=== PATIENT | female | born 1970 | race African-American/Black ===

== ENCOUNTER 2017-07-17 23:05 | Inpatient (IN) | payer MEDICARE, MEDICAID, OTHER ==
[~2017-07-17] VITALS: Ht 167.6 cm; Wt 99.2 kg
[2017-07-17 23:26] VITALS: BP 139/88; PULSE 70; RESP 18; O2SAT 96
[2017-07-18] MEDS ORDERED: OXYC-395 PO (01:35)
[2017-07-18] MEDS ORDERED: XANA1TAB2 PO (01:35)
[2017-07-18 01:55] VITALS: BP 150/120; PULSE 96; RESP 19
[2017-07-18 02:57] LABS: AUTOMATED NEUTROPHIL # 5.1 TH/MM3 (1.8-7.7); BASOPHIL % 0.5 % (0.0-2.0); EOSINOPHIL # 0.1 TH/MM3 (0-0.4); EOSINOPHIL % 0.7 % (0.0-4.0); HEMATOCRIT 36.7 % (35.0-46.0); HEMO FLAGS DIFF FINAL; LYMPH % 23.6 % (9.0-44.0); LYMPHOCYTE # 1.8 TH/MM3 (1.0-4.8); MEAN CELL VOLUME 90.5 FL (80.0-100.0); MEAN CORPUSCULAR HEMOGLOBIN 30.2 PG (27.0-34.0); MEAN CORPUSCULAR HGB CONC 33.4 % (32.0-36.0); MONO % 8.3 % (0.0-8.0); NEUT % 66.9 % (16.0-70.0); PLATELET COUNT 203 TH/MM3 (150-450); RED BLOOD COUNT 4.06 MIL/MM3 (4.00-5.30); RED CELL DISTRIBUTION WIDTH 14.7 % (11.6-17.2); WHITE BLOOD COUNT 7.6 TH/MM3 (4.0-11.0)
[2017-07-18 03:18] LABS: ALT (GPT) 18 U/L (10-53); ANION GAP 7 MEQ/L (5-15); AST (GOT) 15 U/L (15-37); BICARBONATE 25.8 MEQ/L (21.0-32.0); BLOOD UREA NITROGEN 17 MG/DL (7-18); CHLORIDE 101 MEQ/L (98-107); GLOMERULAR FILTRATION RATE 49 ML/MIN (>89); POTASSIUM 4.1 MEQ/L (3.5-5.1); SODIUM (NA) 134 MEQ/L (136-145)
[2017-07-18 03:21] LABS: ALKALINE PHOSPHATASE 86 U/L (45-117); TOTAL BILIRUBIN ADULT 0.2 MG/DL (0.2-1.0)
[2017-07-18 04:29] LABS: ACETAMINOPHEN LESS THAN 2.0 MCG/ML (10.0-30.0); ALCOHOL LESS THAN 3 MG/DL (0-5)
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
[2017-07-18 06:32] VITALS: BP 146/85; PULSE 59; RESP 19; O2SAT 98
[2017-07-18] MEDS ORDERED: INSULIN ASPART 1,000 UNITS/10 ML VIAL SQ ONE (06:45)
[2017-07-18] MEDS ORDERED: MAGNESIUM HYDROXIDE SUSP 30 ML CUP PO PRN (10:45)
[2017-07-18] MEDS ORDERED: ALUMINUM/MAGNESIUM/SIMETH 30 ML CUP PO PRN (10:45)
[2017-07-18] MEDS ORDERED: LORazepam 2 MG/ML VIAL IM PRN (10:45)
[2017-07-18] MEDS ORDERED: LYRI50CA PO (10:46)
[2017-07-18] MEDS ORDERED: TRAZ100T6 PO (10:46)
[2017-07-18] MEDS ORDERED: LINA290C PO (10:47)
[2017-07-18] MEDS ORDERED: OXYC-433 PO (10:47)
[2017-07-18] MEDS ORDERED: NOVOINJ3 SQ ×2 (10:48→10:49)
[2017-07-18] MEDS ORDERED: TIZA4CAP3 PO (10:51)
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
[2017-07-18] MEDS ORDERED: oxyCODONE/ACETAMINOPHEN 10 MG/325 MG TAB PO PRN (11:15)
[2017-07-18 11:40] VITALS: BP_SYST 146; BP_SYST 68; BP_DIAS 16; BP_DIAS 84; TEMP 98; O2SAT 99
[2017-07-18] MEDS ORDERED: INSULIN ASPART 1,000 UNITS/10 ML VIAL SQ SCH ×2 (13:00→16:00)
[2017-07-18] MEDS: PREGABALIN 25 MG CAP PO SCH ×2 (13:00→18:50)
[2017-07-18] MEDS ORDERED: LINZESS 290 MCG PO SCH (13:00)
[2017-07-18 15:51] VITALS: BP 144/93; PULSE 75; RESP 18; TEMP 97.3
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
[2017-07-18] MEDS ORDERED: GLUCAGON 1 MG/ML VIAL OTHER PRN (16:00)
[2017-07-18] MEDS ORDERED: DEXTROSE 50% IN WATER 50 ML VIAL(D50) IV PUSH PRN (16:00)
[2017-07-18] MEDS: INSULIN ASPART 1,000 UNITS/10 ML VIAL SQ SCH (17:00)
[2017-07-18] MEDS ORDERED: INSULIN ASPART SUPPLEMENTAL SCALE SQ SCH (17:00)
[2017-07-18] MEDS ORDERED: PILL SPLITTER OTHER PRN (17:30)
[2017-07-18] MEDS: amLODIPine BESYLATE 5 MG TAB PO SCH (18:50)
[2017-07-18] MEDS: PARoxetine HCL 20 MG TAB PO SCH (20:00)
[2017-07-18] MEDS: INSULIN ASPART SUPPLEMENTAL SCALE SQ SCH (21:00)
[2017-07-18] MEDS: INSULIN DETEMIR 100 UNITS/ML VIAL SQ SCH (21:00)
[2017-07-18] MEDS: CARVEDILOL 12.5 MG TAB PO SCH (22:06)
[2017-07-18] MEDS: traZODone HCL 100 MG TAB PO SCH (22:08)
[2017-07-18] MEDS: LORazepam 1 MG TAB PO PRN (22:11)
[2017-07-19] MEDS ORDERED: LEVOTHYROXINE SODIUM 112 MCG TAB PO SCH (06:00)
[2017-07-19] MEDS ORDERED: LEVOTHYROXINE SODIUM 25 MCG TAB PO SCH (06:00)
[2017-07-19 06:11] VITALS: BP 129/72; PULSE 71; RESP 18; TEMP 97.9; O2SAT 96
[2017-07-19] MEDS: INSULIN ASPART 1,000 UNITS/10 ML VIAL SQ SCH ×3 (08:00→16:34)
[2017-07-19] MEDS: INSULIN ASPART SUPPLEMENTAL SCALE SQ SCH ×4 (08:00→21:12)
[2017-07-19] MEDS: INSULIN DETEMIR 100 UNITS/ML VIAL SQ SCH ×2 (09:00→21:12)
[2017-07-19] MEDS: PANTOPRAZOLE SOD 20 MG DELAYED RELEASE TAB PO SCH (09:31)
[2017-07-19] MEDS: CARVEDILOL 12.5 MG TAB PO SCH ×2 (09:31→21:12)
[2017-07-19] MEDS: amLODIPine BESYLATE 5 MG TAB PO SCH (09:31)
[2017-07-19] MEDS: PREGABALIN 25 MG CAP PO SCH ×3 (09:31→18:26)
[2017-07-19] MEDS: ATORVASTATIN 20 MG TAB PO SCH (09:32)
[2017-07-19] MEDS: PARoxetine HCL 20 MG TAB PO SCH (09:32)
[2017-07-19 10:13] LABS: AUTOMATED NEUTROPHIL # 4.3 TH/MM3 (1.8-7.7); BASOPHIL # 0.1 TH/MM3 (0-0.2); BASOPHIL % 1.7 % (0.0-2.0); EOSINOPHIL # 0.1 TH/MM3 (0-0.4); EOSINOPHIL % 1.3 % (0.0-4.0); HEMO FLAGS DIFF FINAL; LYMPH % 25.6 % (9.0-44.0); LYMPHOCYTE # 1.7 TH/MM3 (1.0-4.8); MEAN CORPUSCULAR HEMOGLOBIN 30.1 PG (27.0-34.0); MEAN CORPUSCULAR HGB CONC 33.1 % (32.0-36.0); MONO % 6.3 % (0.0-8.0); NEUT % 65.1 % (16.0-70.0); PLATELET COUNT 208 TH/MM3 (150-450); RED BLOOD COUNT 3.96 MIL/MM3 (4.00-5.30); RED CELL DISTRIBUTION WIDTH 14.6 % (11.6-17.2); WHITE BLOOD COUNT 6.6 TH/MM3 (4.0-11.0)
[2017-07-19 10:35] LABS: ANION GAP 12 MEQ/L (5-15); AST (GOT) 13 U/L (15-37); BICARBONATE 22.4 MEQ/L (21.0-32.0); BLOOD UREA NITROGEN 16 MG/DL (7-18); CHLORIDE 100 MEQ/L (98-107); GLOMERULAR FILTRATION RATE 50 ML/MIN (>89); POTASSIUM 3.8 MEQ/L (3.5-5.1); SODIUM (NA) 134 MEQ/L (136-145)
[2017-07-19 10:36] LABS: ALT (GPT) 19 U/L (10-53)
[2017-07-19 10:53] LABS: HEMOGLOBIN A1a 1.2 %; HEMOGLOBIN A1b 3.2 %; HEMOGLOBIN Ao 76.1 %; HEMOGLOBIN LA1C 3.2 %; HEMOGLOBIN P3 4.9 %
[2017-07-19 11:02] LABS: ALKALINE PHOSPHATASE 81 U/L (45-117); HDL CHOLESTEROL 66.6 MG/DL (40.0-60.0); LDL CHOLESTEROL 154 MG/DL (0-99); TOTAL BILIRUBIN ADULT 0.2 MG/DL (0.2-1.0)
--- NOTE | 2017-07-19 11:36 | EKG ---
Date Performed: 07/19/2017 Time Performed: 10:27:40 PTAGE: 47 years EKG: Sinus rhythm NONSPECIFIC INTRAVENTRICULAR CONDUCTION DELAY BORDERLINE ECG NO PREVIOUS TRACING DOCTOR: Prasad Bolivar Interpretating Date/Time 07/19/2017 11:35:03
--- NOTE | 2017-07-19 14:21 | HHI.PR ---
Subjective Remarks Final diabetes mellitus, hypothyroidism and hyperlipidemia. Patient has no complaints. She wears compliance with medications. Patient updated with lab results with A1c of 11.1, LDL 154 and TSH of 10. Discussed with RN Objective Vitals Vital Signs Date Time Temp Pulse Resp B/P (MAP) Pulse Ox O2 Delivery O2 Flow Rate FiO2 07/19/17 06:11 97.9 71 18 129/72 (91) 96 07/18/17 15:51 97.3 75 18 144/93 (110) Result Diagram: 07/19/17 0948 07/19/17 0948 Objective Remarks GENERAL: Well-developed, well-nourished in no distress SKIN: Warm and dry. CARDIOVASCULAR: Regular rate and rhythm. RESPIRATORY: No accessory muscle use. Clear to auscultation. Breath sounds equal bilaterally. GASTROINTESTINAL: Abdomen soft, non-tender, nondistended. MUSCULOSKELETAL: Extremities without clubbing, cyanosis, or edema. No obvious deformities. NEUROLOGICAL: Awake and alert. No obvious cranial nerve deficits. Motor grossly within normal limits. Five out of 5 muscle strength in the arms and legs. Normal speech. A/P Problem List: (1) HTN (hypertension) ICD Code: I10 - Essential (primary) hypertension Status: Chronic (2) Hypothyroidism ICD Code: E03.9 - Hypothyroidism, unspecified Status: Chronic (3) HLD (hyperlipidemia) ICD Code: E78.5 - Hyperlipidemia, unspecified Status: Chronic (4) Adjustment disorder with depressed mood ICD Code: F43.21 - Adjustment disorder with depressed mood Status: Chronic (5) DM type 2 (diabetes mellitus, type 2) ICD Code: E11.9 - Type 2 diabetes mellitus without complications Status: Chronic Assessment and Plan Patient is a 47-year-old female who came into the ED as a Bryant act by the police department. She is now admitted to psychiatry unit for further evaluation. Consulted for medical management. Acute kidney injury, possible underlying CKD. Slightly improved on today's labs. Obtain urinalysis - Patient denies diagnoses for any kidney disease - Possible diabetic nephropathy -Continue to monitor DM 2, insulin-dependent, uncontrolled A1c 11.1 - Patient states she is non-compliant with her insulin doses. She knows the novolog will immediately drop her BG that she stagers the dose during meals. She takes Lantus 40units at night but sometimes she forgets. -Continue NovoLog 10 units prandial, Levemir 20 units twice a day and adjust accordingly. Diabetic education - Monitor Accu-Cheks. Monitor for hypoglycemia HTN -Improving continue amlodipine 2.5mg daily and carvedilol 12.5mg BID. Hold hydrochlorothiazide secondary to RAJEEV - Monitor BP Trend HLD - Heart healthy diet continue atorvastatin 20 mg daily Chronic pain, muscle spasms - Continue tizanidine from home, Tylenol for pain - Follow up with pain management outpatient Hypothyroidism. TSH subtherapeutic. Increase levothyroxine 150 g daily and repeat TSH in 6 weeks DVT prophylaxis, patient is ambulatory low risk Problem Qualifiers (1) DM type 2 (diabetes mellitus, type 2): Qualified Codes: E11.65 - Type 2 diabetes mellitus with hyperglycemia; Z79.4 - termite renewal inspector (current) use of insulin Alfred Guevara MD Jul 19, 2017 14:21
[2017-07-19] MEDS: CHOLECALCIFEROL (VIT D3) 1000 UNIT TAB PO SCH (16:30)
--- NOTE | 2017-07-19 17:30 | HHI.PYPN ---
Subjective Remarks Patient was seen and case discussed with nursing. Patient is pleasant and cooperative with exam. She does minimizes her reasons for admission and her mental health history. His compliant with her medications and tolerating it well. Denies depressed mood before admission. Complaining of "anxiety." Denies suicidal or homicidal thoughts ideation intent or plan. Continues to be followed by the medical team Objective Alert: Yes [place]: Person, Place, Date Mood: Calm Affect: Blunted Memory Intact: Comment (grossly intact) Hallucinations: Auditory (denies) Delusions: No Delusion Type: Other (none elicited) Suicidal: Ideation (denies) Homicidal: Ideation (denies) Insight/Judgment Poor Labs Test 07/19/17 09:48 White Blood Count 6.6 TH/MM3 Red Blood Count 3.96 MIL/MM3 Hemoglobin 11.9 GM/DL Hematocrit 36.0 % Mean Corpuscular Volume 91.0 FL Mean Corpuscular Hemoglobin 30.1 PG Mean Corpuscular Hemoglobin Concent 33.1 % Red Cell Distribution Width 14.6 % Platelet Count 208 TH/MM3 Mean Platelet Volume 9.7 FL Neutrophils (%) (Auto) 65.1 % Lymphocytes (%) (Auto) 25.6 % Monocytes (%) (Auto) 6.3 % Eosinophils (%) (Auto) 1.3 % Basophils (%) (Auto) 1.7 % Neutrophils # (Auto) 4.3 TH/MM3 Lymphocytes # (Auto) 1.7 TH/MM3 Monocytes # (Auto) 0.4 TH/MM3 Eosinophils # (Auto) 0.1 TH/MM3 Basophils # (Auto) 0.1 TH/MM3 CBC Comment DIFF FINAL Differential Comment Blood Urea Nitrogen 16 MG/DL Creatinine 1.37 MG/DL Random Glucose 291 MG/DL Total Protein 7.7 GM/DL Albumin 3.6 GM/DL Calcium Level 9.7 MG/DL Alkaline Phosphatase 81 U/L Aspartate Amino Transf (AST/SGOT) 13 U/L Alanine Aminotransferase (ALT/SGPT) 19 U/L Total Bilirubin 0.2 MG/DL Sodium Level 134 MEQ/L Potassium Level 3.8 MEQ/L Chloride Level 100 MEQ/L Carbon Dioxide Level 22.4 MEQ/L Anion Gap 12 MEQ/L Estimat Glomerular Filtration Rate 50 ML/MIN Hemoglobin A1c 11.1 % Triglycerides Level 184 MG/DL Cholesterol Level 257 MG/DL LDL Cholesterol 154 MG/DL HDL Cholesterol 66.6 MG/DL Cholesterol/HDL Ratio 3.85 RATIO Vitamin B12 Level 628 PG/ML 25-Hydroxy Vitamin D Total 16.8 ng/ML Thyroid Stimulating Hormone 3rd Gen 10.400 uIU/ML Vitals/IOs Vital Signs Date Time Temp Pulse Resp B/P (MAP) Pulse Ox O2 Delivery O2 Flow Rate FiO2 07/19/17 06:11 97.9 71 18 129/72 (91) 96 07/18/17 11:40 Room Air Assessment & Plan Problem List: (1) Adjustment disorder with depressed mood ICD Codes: F43.21 - Adjustment disorder with depressed mood Status: Chronic Assessment & Plan Continue current treatment plan Justification for Cont. Inpt. Patient would decompensate in a less restrictive setting Jaime Fernández DO Jul 19, 2017 17:29
[2017-07-19] MEDS: traZODone HCL 100 MG TAB PO SCH (21:12)
[2017-07-19] MEDS: LORazepam 1 MG TAB PO PRN (21:19)
[2017-07-20 04:54] VITALS: BP 117/59; PULSE 70; RESP 16; TEMP 98.3; O2SAT 98
[2017-07-20] MEDS: LEVOTHYROXINE SODIUM 150 MCG TAB PO SCH (05:50)
[2017-07-20 06:35] LABS: BACTERIA, URINE OCC /hpf; BLOOD, URINE NEG (NEG); COMMENT (UR) CULT NOT INDICATED; CULTURE IF INDICATED CULT NOT INDICATED; GLUCOSE,URINE 300 mg/dL (NEG); KETONE, URINE NEG (NEG); MUCUS URINE FEW /lpf (OCC); NITRITE,URINE NEG (NEG); SQUAMOUS EPITHELIAL CELL URINE 1 /hpf (0-5); URINE COLOR LIGHT-YELLOW (YELLW/STRAW)
[2017-07-20] MEDS: INSULIN ASPART SUPPLEMENTAL SCALE SQ SCH ×4 (07:55→21:26)
[2017-07-20] MEDS: INSULIN ASPART 1,000 UNITS/10 ML VIAL SQ SCH ×3 (07:55→17:00)
[2017-07-20] MEDS: ATORVASTATIN 20 MG TAB PO SCH (09:00)
[2017-07-20] MEDS: INSULIN DETEMIR 100 UNITS/ML VIAL SQ SCH ×2 (09:00→21:25)
[2017-07-20] MEDS: CHOLECALCIFEROL (VIT D3) 1000 UNIT TAB PO SCH (10:05)
[2017-07-20] MEDS: PARoxetine HCL 20 MG TAB PO SCH (10:06)
[2017-07-20] MEDS: PANTOPRAZOLE SOD 20 MG DELAYED RELEASE TAB PO SCH (10:06)
[2017-07-20] MEDS: PREGABALIN 25 MG CAP PO SCH ×3 (10:06→18:38)
[2017-07-20] MEDS: amLODIPine BESYLATE 5 MG TAB PO SCH (10:06)
[2017-07-20] MEDS: CARVEDILOL 12.5 MG TAB PO SCH ×2 (10:07→21:25)
--- NOTE | 2017-07-20 12:14 | HHI.PYPN ---
Subjective Remarks Patient was seen and case discussed with nursing. Patient is pleasant and cooperative with exam. Bright and cheerful during the interview. Does not seem interested in talking to her son. Affect is euthymic. Denies suicidal or homicidal ideation intent or plan. Eating and sleeping well per nursing Objective Alert: Yes [place]: Person, Place, Date Mood: Calm Affect: Euthymic Memory Intact: Comment (grossly intact) Hallucinations: Auditory (denies) Delusions: No Delusion Type: Other (none elicited) Suicidal: Ideation (denies) Homicidal: Ideation (denies) Insight/Judgment Poor Labs Test 07/20/17 06:00 Urine Color LIGHT-YELLOW Urine Turbidity HAZY Urine pH 5.0 Urine Specific [place] 1.010 Urine Protein NEG mg/dL Urine Glucose (UA) 300 mg/dL Urine Ketones NEG mg/dL Urine Occult Blood NEG Urine Nitrite NEG Urine Bilirubin NEG Urine Urobilinogen LESS THAN 2.0 MG/DL Urine Leukocyte Esterase LARGE Urine RBC 1 /hpf Urine WBC 5 /hpf Urine Squamous Epithelial Cells 1 /hpf Urine Amorphous Sediment RARE Urine Bacteria OCC /hpf Urine Mucus FEW /lpf Microscopic Urinalysis Comment CULT NOT INDICATED Vitals/IOs Vital Signs Date Time Temp Pulse Resp B/P (MAP) Pulse Ox O2 Delivery O2 Flow Rate FiO2 07/20/17 04:54 98.3 70 16 117/59 (78) 98 07/18/17 11:40 Room Air Assessment & Plan Problem List: (1) Adjustment disorder with depressed mood ICD Codes: F43.21 - Adjustment disorder with depressed mood Status: Chronic Assessment & Plan Continue current treatment plan Justification for Cont. Inpt. Patient will decompensate in a less restrictive setting Jaime Fernández DO Jul 20, 2017 12:13
--- NOTE | 2017-07-20 13:46 | HHI.PR ---
Subjective Remarks Follow-up diabetes mellitus. Patient complains of chronic intermittent numbness of bilateral fingers patient on Lyrica. Discussed with RN Objective Vitals Vital Signs Date Time Temp Pulse Resp B/P (MAP) Pulse Ox O2 Delivery O2 Flow Rate FiO2 07/20/17 04:54 98.3 70 16 117/59 78 98 Result Diagram: 07/19/1748 07/19/17 0948 Objective Remarks GENERAL: Well-developed, well-nourished in no distress SKIN: Warm and dry. CARDIOVASCULAR: Regular rate and rhythm. RESPIRATORY: No accessory muscle use. Clear to auscultation. Breath sounds equal bilaterally. GASTROINTESTINAL: Abdomen soft, non-tender, nondistended. MUSCULOSKELETAL: Extremities without clubbing, cyanosis, or edema. No obvious deformities. NEUROLOGICAL: Awake and alert. No obvious cranial nerve deficits. Motor grossly within normal limits. Five out of 5 muscle strength in the arms and legs. Normal speech. A/P Problem List: (1) HTN (hypertension) ICD Code: I10 - Essential (primary) hypertension Status: Chronic (2) Hypothyroidism ICD Code: E03.9 - Hypothyroidism, unspecified Status: Chronic (3) HLD (hyperlipidemia) ICD Code: E78.5 - Hyperlipidemia, unspecified Status: Chronic (4) Adjustment disorder with depressed mood ICD Code: F43.21 - Adjustment disorder with depressed mood Status: Chronic (5) DM type 2 (diabetes mellitus, type 2) ICD Code: E11.9 - Type 2 diabetes mellitus without complications Status: Chronic Assessment and Plan Patient is a 47-year-old female who came into the ED as a [place] act by the police department. She is now admitted to psychiatry unit for further evaluation. Consulted for medical management. Acute kidney injury, possible underlying CKD. Slightly improved. - Patient denies diagnoses for any kidney disease - Possible diabetic nephropathy - Continue to monitor . Avoid nephrotoxins DM 2, insulin-dependent, uncontrolled A1c 11.1 - Patient states she is non-compliant with her insulin doses. She knows the novolog will immediately drop her BG that she staggers the dose during meals. She takes Lantus 40units at night but sometimes she forgets. - Continue NovoLog 10 units prandial, Levemir 23 units twice a day and adjust accordingly. Diabetic education - Monitor Accu-Cheks. Monitor for hypoglycemia Diabetic neuropathy. Continue Lyrica HTN -Improving continue amlodipine 2.5mg daily and carvedilol 12.5mg BID. Hold hydrochlorothiazide secondary to RAJEEV - Monitor BP Trend HLD - Heart healthy diet continue atorvastatin 20 mg daily Chronic pain, muscle spasms - Continue tizanidine from home, Tylenol for pain - Follow up with pain management outpatient Hypothyroidism. TSH subtherapeutic. Increase levothyroxine 150 g daily 07/19 and repeat TSH in 6 weeks DVT prophylaxis, patient is ambulatory low risk Problem Qualifiers (1) DM type 2 (diabetes mellitus, type 2): Qualified Codes: E11.65 - Type 2 diabetes mellitus with hyperglycemia; Z79.4 - penitentiary (current) use of insulin Alfred Guevara MD Jul 20, 2017 13:46
[2017-07-20 18:09] VITALS: BP 122/76; PULSE 72; RESP 18; TEMP 97.5; O2SAT 98
[2017-07-20] MEDS: traZODone HCL 100 MG TAB PO SCH (21:25)
[2017-07-20] MEDS: ACETAMINOPHEN 325 MG TAB PO PRN (23:13)
[2017-07-21] MEDS: LORazepam 1 MG TAB PO PRN (00:17)
[2017-07-21] MEDS: LEVOTHYROXINE SODIUM 150 MCG TAB PO SCH (06:18)
[2017-07-21] MEDS: ACETAMINOPHEN 325 MG TAB PO PRN (06:46)
[2017-07-21 06:54] VITALS: BP 145/83; PULSE 68; RESP 16; TEMP 98; O2SAT 96
[2017-07-21] MEDS: INSULIN ASPART 1,000 UNITS/10 ML VIAL SQ SCH ×3 (07:38→16:11)
[2017-07-21] MEDS: INSULIN ASPART SUPPLEMENTAL SCALE SQ SCH ×4 (07:40→20:59)
[2017-07-21] MEDS: CHOLECALCIFEROL (VIT D3) 1000 UNIT TAB PO SCH (08:34)
[2017-07-21] MEDS: CARVEDILOL 12.5 MG TAB PO SCH ×2 (08:35→20:51)
[2017-07-21] MEDS: PREGABALIN 25 MG CAP PO SCH ×3 (08:35→17:14)
[2017-07-21] MEDS: PANTOPRAZOLE SOD 20 MG DELAYED RELEASE TAB PO SCH (08:35)
[2017-07-21] MEDS: ATORVASTATIN 20 MG TAB PO SCH (08:35)
[2017-07-21] MEDS: amLODIPine BESYLATE 5 MG TAB PO SCH (08:35)
[2017-07-21] MEDS: PARoxetine HCL 20 MG TAB PO SCH (08:35)
[2017-07-21] MEDS: INSULIN DETEMIR 100 UNITS/ML VIAL SQ SCH ×2 (08:36→20:59)
[2017-07-21] MEDS ORDERED: LYRI50CA PO (16:37)
[2017-07-21] MEDS ORDERED: PANT20 PO (16:37)
[2017-07-21] MEDS ORDERED: CARV12.5 PO (16:37)
[2017-07-21] MEDS ORDERED: LEVEMIR SQ (16:37)
[2017-07-21] MEDS ORDERED: VITA1000 PO (16:37)
[2017-07-21] MEDS ORDERED: LEVO.15 PO (16:37)
[2017-07-21] MEDS ORDERED: ATOR20TA15 PO (16:37)
[2017-07-21] MEDS ORDERED: AMLO5 PO (16:37)
[2017-07-21] MEDS ORDERED: TRAZ100T6 PO (16:37)
[2017-07-21] MEDS ORDERED: TIZA4 PO (16:37)
[2017-07-21] MEDS ORDERED: NOVOLOGP2 SQ (16:37)
[2017-07-21] MEDS ORDERED: PARO20TA2 PO (16:37)
--- NOTE | 2017-07-21 16:43 | HHI.DS ---
Psychiatry Discharge Summary Inpatient Psychiatric care?: Yes Advance Directive: No Reason Not Provided: Due to Patient Condition Mental Health AdvanceDirective: No Health Care Proxy: No Admission Admission Date Jul 18, 2017 at 10:41 Admission Diagnosis: (1) Adjustment disorder with depressed mood ICD Code: F43.21 - Adjustment disorder with depressed mood Brief History 47-year-old female presents under a Bryant act for both suicidal and homicidal ideation patient apparently got into an argument with her 17-year-old son. Patient states her son has been doing drugs and being disrespectful and rebellious with her. Patient is quite worried about his drug use but she is also worried that she will get angry enough to harm him and then harm or kill herself. According to the Bryant act, the patient was suicidal in her residence last night, believing her son was on narcotics. She described herself as extremely tired and needing help for her mental condition. She feels like she is a failure. She was noted to be very upset. At this time the patient describes multiple symptoms of depression, including depressed mood, anhedonia, suicidal ideation, social withdrawal, tearfulness, feeling hopeless and helpless, decreased self-esteem, insomnia, appetite change (eating more and noncompliant with her diabetes medicine) irritability and tearfulness. She denies the use of alcohol or drugs. Tobacco Use In Past 30 Days: No Tobacco Past 30 Days Alcohol Use: Never Hospital Course Patient hospital course was uneventful, she has been compliant with her medications. Feels these few days is really help to get some perspective into her relationship with her son. She now denies suicidality homicidality voices or visions. Has had a contact with her family she is willing to go home with them today. And able contracted to no harm. Thus patient be discharged today to her daughter the follow-up mental health services in the community and her area Results Blood Pressure 145 / 83 Vital Signs Date Time Temp Pulse Resp B/P (MAP) Pulse Ox O2 Delivery O2 Flow Rate FiO2 07/21/17 06:54 98.0 68 16 145/83 (103) 96 07/18/17 11:40 Room Air Laboratory Tests Test 07/19/17 09:48 07/20/17 06:00 Red Blood Count 3.96 MIL/MM3 (4.00-5.30) Creatinine 1.37 MG/DL (0.50-1.00) Random Glucose 291 MG/DL (74-106) Aspartate Amino Transf (AST/SGOT) 13 U/L (15-37) Sodium Level 134 MEQ/L (136-145) Estimat Glomerular Filtration Rate 50 ML/MIN (>89) Hemoglobin A1c 11.1 % (4.3-6.0) Triglycerides Level 184 MG/DL (42-150) Cholesterol Level 257 MG/DL (120-200) LDL Cholesterol 154 MG/DL (0-99) HDL Cholesterol 66.6 MG/DL (40.0-60.0) 25-Hydroxy Vitamin D Total 16.8 ng/ML (30-100) Thyroid Stimulating Hormone 3rd Gen 10.400 uIU/ML (0.358-3.740) Urine Turbidity HAZY (CLEAR) Urine Glucose (UA) 300 mg/dL (NEG) Urine Leukocyte Esterase LARGE (NEG) Urine Bacteria OCC /hpf (NONE) Urine Mucus FEW /lpf (OCC) Laboratory Results Test 07/19/17 09:48 Cholesterol Level 257 MG/DL (120-200) HDL Cholesterol 66.6 MG/DL (40.0-60.0) Hemoglobin A1c 11.1 % (4.3-6.0) LDL Cholesterol 154 MG/DL (0-99) Triglycerides Level 184 MG/DL (42-150) Summary of Procedures None done Pending results at discharge: No Medications # of Antipsychotic meds at D/C: 0 Approp Antipsych med options 1 - Minimum of three failed multiple trials of monotherapy. 2 - Documented plan to taper to monotherapy due to previous use of multiple meds OR cross-taper in progress at D/C. 3 - Documentation of augmentation of Clozapine. 4 - Justification other than those listed in allowable values 1-3, document here : Discharge Discharge Date: Jul 21, 2017 Discharge Diagnosis: (1) Adjustment disorder with depressed mood Diagnosis: Principal ICD Code: F43.21 - Adjustment disorder with depressed mood Status: Chronic Mental Status Exam at Disch Alert oriented Afro[place] female calm cooperative with me. She is normoactive. Her mood is euthymic to mildly dysphoric with good range intensity of her affect. Speech rate and rhythm are within normal limits though no formal thought disorders. No auditory or visual hallucinations. No delusions. Insight and judgment is fair. Cognition grossly intact Pt Condition on Discharge: Stable Discharge Disposition: Discharge Home Discharge Instructions Diet Instructions: As Tolerated, No Restrictions Activities you can perform: Regular-No Restrictions Scheduled Appointment: [facility] Appointment Date: Jul 22, 2017 Appointment Time: 7:30 a.m. Discharge Time > 30 minutes Discharge/Advance Care Plan Health Problems: (1) Adjustment disorder with depressed mood Goals to promote your health * To prevent worsening of your condition and complications * To maintain your health at the optimal level Directions to meet your goals Take your medications as prescribed Follow your dietary instruction Follow activity as directed Keep your appointments as scheduled Take your immunizations and boosters as scheduled If your symptoms worsen call your PCP, if no PCP go to Urgent Care Center or Emergency Room For 12/05 questions related to your inpatient stay or results of tests pending at discharge, please contact Dr. Ashu Matias at Smoking is Dangerous to Your Health. Avoid second hand smoking Ashu Matias MD Jul 21, 2017 16:43
--- NOTE | 2017-07-21 17:09 | HHI.PR ---
Subjective Remarks In the bed, sleepy. No chest pain . However she say she has back pain and is asking for more pain meds. No n/v/d/c. Denies sob. Objective Vitals Vital Signs Date Time Temp Pulse Resp B/P (MAP) Pulse Ox O2 Delivery O2 Flow Rate FiO2 07/21/17 06:54 98.0 68 16 145/83 (103) 96 07/20/17 19:38 16 07/20/17 18:09 97.5 72 18 122/76 (91) 98 Result Diagram: 07/19/1794707/19/17947 Objective Remarks GENERAL: Well-developed, well-nourished in no distress SKIN: Warm and dry. CARDIOVASCULAR: Regular rate and rhythm. RESPIRATORY: No accessory muscle use. Clear to auscultation. Breath sounds equal bilaterally. GASTROINTESTINAL: Abdomen soft, non-tender, nondistended. MUSCULOSKELETAL: Extremities without clubbing, cyanosis, or edema. No obvious deformities. NEUROLOGICAL: Awake and alert. No obvious cranial nerve deficits. Motor grossly within normal limits. Five out of 5 muscle strength in the arms and legs. Normal speech. A/P Problem List: (1) HTN (hypertension) ICD Code: I10 - Essential (primary) hypertension Status: Chronic (2) Hypothyroidism ICD Code: E03.9 - Hypothyroidism, unspecified Status: Chronic (3) HLD (hyperlipidemia) ICD Code: E78.5 - Hyperlipidemia, unspecified Status: Chronic (4) Adjustment disorder with depressed mood ICD Code: F43.21 - Adjustment disorder with depressed mood Status: Chronic (5) DM type 2 (diabetes mellitus, type 2) ICD Code: E11.9 - Type 2 diabetes mellitus without complications Status: Chronic Assessment and Plan Patient is a 47-year-old female who came into the ED as a Bryant act by the police department. She is now admitted to psychiatry unit for further evaluation. Consulted for medical management. Acute kidney injury, possible underlying CKD. Slightly improved. - Patient denies diagnoses for any kidney disease - Possible diabetic nephropathy - Continue to monitor . Avoid nephrotoxins DM 2, insulin-dependent, uncontrolled A1c 11.1 - Patient states she is non-compliant with her insulin doses. She knows the novolog will immediately drop her BG that she staggers the dose during meals. She takes Lantus 40units at night but sometimes she forgets. - Continue NovoLog 10 units prandial, Levemir 23 units twice a day and adjust accordingly. Diabetic education - Monitor Accu-Cheks. Monitor for hypoglycemia Diabetic neuropathy. Continue Lyrica HTN -Improving continue amlodipine 2.5mg daily and carvedilol 12.5mg BID. Hold hydrochlorothiazide secondary to RAJEEV - Monitor BP Trend HLD - Heart healthy diet continue atorvastatin 20 mg daily Chronic pain, muscle spasms - Continue tizanidine from home, Tylenol for pain - Follow up with pain management outpatient Hypothyroidism. TSH subtherapeutic. Increase levothyroxine 150 g daily 07/19 and repeat TSH in 6 weeks DVT prophylaxis, patient is ambulatory low risk Problem Qualifiers (1) DM type 2 (diabetes mellitus, type 2): Qualified Codes: E11.65 - Type 2 diabetes mellitus with hyperglycemia; Z79.4 - roasterman (current) use of insulin Destini Cole MD Jul 21, 2017 17:09
[2017-07-21] MEDS: traZODone HCL 100 MG TAB PO SCH (20:51)
== END 2017-07-21 22:55 | disposition home or self-care (01) | DRG 881 ==
LOC: NEPJ 23:05 → NEDA 07-18 10:41 → H260 07-18 12:15
PROVIDERS: ADMIT Psychiatry & Neurology Psychiatry; ATTEND Psychiatry & Neurology Psychiatry
DX: F43.21 Adjustment disorder with depressed mood (principal); N17.9 Acute kidney failure, unspecified; E11.40 Type 2 diabetes mellitus with diabetic neuropathy, unspecified; R45.851 Suicidal ideations; E11.65 Type 2 diabetes mellitus with hyperglycemia; R45.850 Homicidal ideations; I10 Essential (primary) hypertension; E78.00 Pure hypercholesterolemia, unspecified; M79.7 Fibromyalgia; E03.9 Hypothyroidism, unspecified; K76.0 Fatty (change of) liver, not elsewhere classified; I69.320 Aphasia following cerebral infarction; E78.5 Hyperlipidemia, unspecified; G89.29 Other chronic pain; M62.838 Other muscle spasm; Z79.4 Long term (current) use of insulin; Z81.8 Family history of other mental and behavioral disorders; Z82.49 Family history of ischemic heart disease and other diseases of the circulatory system; Z83.3 Family history of diabetes mellitus; Z91.14 Patient's other noncompliance with medication regimen; Z91.19 Patient's noncompliance with other medical treatment and regimen
CPT/HCPCS: 80053; 80061; 80307; 81001; 82306; 82550; 82552; 82607; 82948; 83036; 84443; 84703; 85025; 93005; 96372; J1815